=== PATIENT | female | born 2000 | race Caucasian/White ===

== ENCOUNTER 2024-01-29 09:05 | Inpatient (IN) | payer BC ==
[2024-02-04 03:04] VITALS: BMI 28.7
[2024-02-04] MEDS ORDERED: Oxytocin 30 units/NS 500 ML 500 ML IV SCH ×2 (03:05→09:08)
[2024-02-04] MEDS ORDERED: HYDROcodone/Acetaminophen 5/325 mg Tablet PO PRN ×4 (03:05→09:08)
[2024-02-04] MEDS ORDERED: Promethazine HCl 25 MG/ML VIAL IM PRN ×2 (03:05→04:23)
[2024-02-04] MEDS ORDERED: fentaNYL 50 mcg/mL 1 mL Vial SLOW IVP PRN (03:05)
[2024-02-04] MEDS ORDERED: hydrALAZINE 20 MG/ML VIAL SLOW IVP PRN ×2 (03:05→09:08)
[2024-02-04] MEDS ORDERED: Ondansetron PF 4 MG/2 ML Vial IVP PRN ×3 (03:05→09:08)
[2024-02-04] MEDS ORDERED: Lidocaine 1% (PF) 30 ML VIAL SC PRN (03:05)
[2024-02-04] MEDS: Lactated Ringer's 1,000 ML IV SCH (03:26)
[2024-02-04 03:43] LABS: Hematocrit 38.7 % (34.9-44.5); Hemoglobin 13.3 g/dL (12.0-15.5); Mean Corpuscular HGB CONC 34.4 g/dL (32.0-36.0); Mean Corpuscular Hemoglobin 31.1 pg (27.0-33.0); Mean Corpuscular Volume 90.4 fL (81.6-98.3); Mean Platelet Volume 12.1 fL (7.4-10.4); Platelet Count 180 10x3/uL (150-450); RBC Distribution Width 13.2 % (11.5-14.5); Red Blood Cell (RBC) Count 4.28 10x6/uL (3.90-5.03); White Blood Cell (WBC) Count 15.2 10x3/uL (3.5-10.5)
[2024-02-04] MEDS: fentaNYL/Ropivacaine Epidural 100 ML ONE (04:16)
[2024-02-04 04:18] LABS: Syphilis Antibody Nonreactive (Nonreactive); Syphilis Antibody Index 0.04 S/CO (<1.00 Non-Reactive)
[2024-02-04 04:19] LABS: HBsAg Index 0.16 S/CO (0-0.99); Hep B Surf Ag - L&D Non-Reactive S/CO (NonReactive)
[2024-02-04] MEDS ORDERED: Naloxone HCl 0.4 mg/ml Vial IVP PRN ×2 (04:23)
[2024-02-04] MEDS ORDERED: ePHEDrine Sulfate 50 MG/10 ML VIAL SLOW IVP PRN (04:23)
[2024-02-04] MEDS ORDERED: Moisturizing Cream (Eucerin) 113 GM JAR TOP PRN (04:23)
[2024-02-04] MEDS ORDERED: diphenhydrAMINE 50 MG/ML VIAL IVP PRN (04:23)
[2024-02-04] MEDS ORDERED: Lactated Ringer's 500 ML IV PRN (04:23)
[2024-02-04] MEDS ORDERED: fentaNYL 2 mcg/Ropivacaine 0.2% Epidural 100 ML CADD EPIDURAL SCH (04:30)
[2024-02-04] MEDS ORDERED: Communication Order-Pharmacy FS SCH (04:30)
[2024-02-04] MEDS: Oxytocin 30 units/NS 500 ML 500 ML IV SCH (05:43)
[2024-02-04] MEDS: Methylergonovine 0.2 MG/ML VIAL ONE (05:49)
[2024-02-04] MEDS: Misoprostol 200 MCG TAB ONE (05:59)
[2024-02-04] MEDS: Ibuprofen 800 MG TAB PO PRN (06:47)
[2024-02-04] MEDS: Acetaminophen 325 MG TAB PO PRN (06:47)
[2024-02-04] MEDS ORDERED: diphenhydrAMINE 25 MG CAP PO PRN (09:08)
[2024-02-04] MEDS ORDERED: Lanolin Ointment 7 GM TUBE TOP PRN (09:08)
[2024-02-04] MEDS ORDERED: Milk Of Magnesia 30 ML UDCUP PO PRN (09:08)
[2024-02-04] MEDS ORDERED: Preparation H Ointment 28 GM TUBE PR PRN (09:08)
[2024-02-04] MEDS ORDERED: Bisacodyl 10 MG SUPP PR PRN (09:08)
[2024-02-04] MEDS: Docusate 100 MG CAP PO SCH (09:48)
[2024-02-04] MEDS: Prenatal Vitamin 1 TAB PO SCH (09:48)
[2024-02-04] MEDS: Methylergonovine 0.2 MG/ML VIAL IM SCH (12:50)
[2024-02-04] MEDS: Misoprostol 200 MCG TAB PR SCH (12:50)
[2024-02-04] MEDS: Boostrix 0.5 ML (Tdap) VIAL (>/=7 yrs of age) IM ONE (12:51)
[2024-02-04] MEDS: Ibuprofen 800 MG TAB PO SCH (13:33)
[2024-02-04] MEDS: Benzocaine-Menthol 82.5 ML CAN TOP PRN (13:34)
[2024-02-04] MEDS: Ferrous Sulfate 325 MG TAB PO SCH ×2 (17:39→17:40)
[2024-02-05 07:53] VITALS: BP 125/76; TEMP 98.4
[2024-02-05] MEDS ORDERED: Bupivacaine/Epinephrine 0.25% 30 ML VIAL ONE (10:00)
== END 2024-02-05 19:44 | disposition home or self-care (01) | DRG 807 ==
LOC: CSHLD 02-04 02:46 → CSHPP 02-04 08:30
PROVIDERS: ADMIT Obstetrics & Gynecology; ATTEND Obstetrics & Gynecology
PROC: 10E0XZZ Delivery of Products of Conception, External Approach (ICD-10-PCS; principal; 2024-02-04)
PROC: 0KQM0ZZ Repair Perineum Muscle, Open Approach (ICD-10-PCS; 2024-02-04)
DX: O48.0 Post-term pregnancy (principal); Z37.0 Single live birth; Z3A.40 40 weeks gestation of pregnancy; O70.1 Second degree perineal laceration during delivery; O62.2 Other uterine inertia
CPT/HCPCS: 51702; 85027; 86780; 86850; 86900; 86901; 87340; J2210; J2590; J7120